=== PATIENT | female | born 1990 | race American Indian/Alaskan Native ===

== ENCOUNTER 2019-04-07 11:25 | Emergency (ER) | payer OTHER, MEDICAID ==
[2019-04-07 11:36] VITALS: BP 145/87
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
[2019-04-07] MEDS ORDERED: IBUPROFEN PO ONE (12:07)
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
== END 2019-04-07 12:33 | disposition home or self-care (01) ==
LOC: ED 11:25
DX: S46.911A Strain of unspecified muscle, fascia and tendon at shoulder and upper arm level, right arm, initial encounter (principal); I10 Essential (primary) hypertension; V49.49XA Driver injured in collision with other motor vehicles in traffic accident, initial encounter; Y93.89 Activity, other specified; Y92.488 Other paved roadways as the place of occurrence of the external cause; Y99.8 Other external cause status
CPT/HCPCS: 99282

== ENCOUNTER 2021-07-10 08:05 | Emergency (ER) | payer MEDICAID ==
[2021-07-10] MEDS ORDERED: KETOROLAC 10 MG TAB PO ONE (08:35)
[2021-07-10] MEDS ORDERED: predniSONE 20 MG TAB PO ONE (08:35)
--- NOTE | 2021-07-10 08:35 | Emergency Department Report ---
ED General Adult HPI - General Chief complaint: Back Pain/Injury Stated complaint: back pain Time Seen by Provider: 07/10/21 08:15 Source: patient Mode of arrival: Ambulatory Limitations: No Limitations - History of Present Illness Initial comments: 31-year-old -[place] female patient presents with complaints of sudden onset of low back pain starting yesterday. Patient states she bent over and upon, not got a sudden sharp pain in her right lower back. Patient states the pain is nonradiating and she rates it as a 7/10 in severity when sitting still and then 10/10 in severity with movement. She denies any recent injuries, difficulty with ambulation, loss of bladder/bowel control, hematuria/hematochezia, abdominal pain, numbness/tingling/weakness in her limbs, fever, or history of cancer. Patient states she tried ibuprofen and some of her mother's tizanidine which helped with the pain. She denies any past medical history. NKDA per patient. Severity scale (0 -10): 10 - Related Data Previous Rx's Medication Instructions Recorded Last Taken Type Dicyclomine [Bentyl] 20 mg PO QID PRN #14 tablet 03/25/14 Unknown Rx Ondansetron [Zofran Odt] 4 mg PO Q4H PRN #14 tab.rapdis 03/25/14 Unknown Rx Cyclobenzaprine [Flexeril] 10 mg PO TID PRN #20 tablet 04/07/19 Unknown Rx Ibuprofen [Motrin 800 MG tab] 800 mg PO TID 4 Days #12 tablet 04/07/19 Unknown Rx Naproxen [Naprosyn] 500 mg PO BID PRN #20 tablet 07/10/21 Unknown Rx methocarbamoL [Methocarbamol] 750 - 1,500 mg PO TID PRN #24 07/10/21 Unknown Rx tablet predniSONE [Deltasone] 20 mg PO QDAY 2 Days #4 tab 07/10/21 Unknown Rx Allergies Allergy/AdvReac Type Severity Reaction Status Date / Time oxycodone HCl [From Percocet] AdvReac Itching Verified 04/07/19 11:26 Penicillins AdvReac Itching Verified 07/10/21 08:10 ED Review of Systems ROS: Stated complaint: back pain Other details as noted in HPI Constitutional: denies: chills, diaphoresis, fever, malaise Cardiovascular: denies: chest pain Gastrointestinal: denies: abdominal pain Neurological: denies: numbness, paresthesias, abnormal gait ED Past Medical Hx - Past Medical History Hx Hypertension: Yes - Surgical History Additional Surgical History: - Social History Smoking Status: Never Smoker Substance Use Type: None - Medications Home Medications: Home Medications Medication Instructions Recorded Confirmed Last Taken Type Dicyclomine [Bentyl] 20 mg PO QID PRN #14 tablet 03/25/14 Unknown Rx Ondansetron [Zofran Odt] 4 mg PO Q4H PRN #14 tab.rapdis 03/25/14 Unknown Rx Cyclobenzaprine [Flexeril] 10 mg PO TID PRN #20 tablet 04/07/19 Unknown Rx Ibuprofen [Motrin 800 MG tab] 800 mg PO TID 4 Days #12 tablet 04/07/19 Unknown Rx Naproxen [Naprosyn] 500 mg PO BID PRN #20 tablet 07/10/21 Unknown Rx methocarbamoL [Methocarbamol] 750 - 1,500 mg PO TID PRN #24 07/10/21 Unknown Rx tablet predniSONE [Deltasone] 20 mg PO QDAY 2 Days #4 tab 07/10/21 Unknown Rx ED Physical Exam - General Limitations: No Limitations General appearance: alert, in no apparent distress - Head Head exam: Present: atraumatic, normocephalic - Eye Eye exam: Present: normal appearance - Respiratory Respiratory exam: Absent: respiratory distress - Cardiovascular Cardiovascular Exam: Present: regular rate - Extremities Exam Extremities exam: Present: full ROM - Back Exam Back exam: Present: paraspinal tenderness (Tenderness to palpation noted to right lower lumbar area without obvious deformities or step-offs ). Absent: vertebral tenderness - Expanded Back Exam Expanded Back exam: Absent: saddle anesthesia - Neurological Exam Neurological exam: Present: alert, oriented X3, normal gait - Expanded Neurological Exam Expanded Sensory exam: Lower Extremity Light Touch: Normal Motor strength exam: RLE: 4, LLE: 4 - Psychiatric Psychiatric exam: Present: normal affect, normal mood - Skin Skin exam: Present: warm, dry, intact, normal color. Absent: rash ED Course Vital Signs 07/10/21 08:11 Temperature 98.8 F Pulse Rate 85 Respiratory 18 Rate Blood Pressure 153/74 [Right] O2 Sat by Pulse 100 Oximetry ED Medical Decision Making - Medical Decision Making 31-year-old -[place] female patient presents with complaints of sudden onset of low back pain starting yesterday. Patient states she bent over and upon, not got a sudden sharp pain in her right lower back. Patient states the pain is nonradiating and she rates it as a 7/10 in severity when sitting still and then 10/10 in severity with movement. She denies any recent injuries, difficulty with ambulation, loss of bladder/bowel control, hematuria/hemat ochezia, abdominal pain, numbness/tingling/weakness in her limbs, fever, or history of cancer. Patient states she tried ibuprofen and some of her mother's tizanidine which helped with the pain. She denies any past medical history. NKDA per patient. Given history and physical exam, suspect pain is due to pulled muscle in the lower back. Will treat as such with anti-inflammatories, muscle relaxers, icing, and stretching. Patient to follow-up with her PCP in 3 to 5 days. clinical data specialist referral provided as needed. She is well-appearing, her vitals are within normal limits, she is stable for discharge home. Discussed in detail signs and symptoms that should prompt immediate return to the ED with patient who verbalizes understanding. Critical care attestation.: If time is entered above; I have spent that time in minutes in the direct care of this critically ill patient, excluding procedure time. ED Disposition Clinical Impression: Back pain Disposition: 01 HOME / SELF CARE / HOMELESS Is pt being admited?: No Condition: Stable Instructions: Acute Back Pain, Adult, Lumbosacral Strain Prescriptions: predniSONE [Deltasone] 20 mg PO QDAY 2 Days #4 tab methocarbamoL [Methocarbamol] 750 - 1,500 mg PO TID PRN #24 tablet PRN Reason: muscle spasm/tightness Naproxen [Naprosyn] 500 mg PO BID PRN #20 tablet PRN Reason: pain Referrals: [facility] [Provider Group] - as needed PRIMARY CARE,MD [Referring] - 3-5 Days (Follow-up and recheck of blood pressure) Forms: Work/School Release Form(ED)
[2021-07-10 10:07] VITALS: BP 141/68
== END 2021-07-10 10:06 | disposition home or self-care (01) ==
LOC: ED 08:05
DX: M54.50 Low back pain, unspecified (principal); I10 Essential (primary) hypertension; Z88.0 Allergy status to penicillin; Z88.8 Allergy status to other drugs, medicaments and biological substances
CPT/HCPCS: 99282; J7512